=== PATIENT | female | born 1955 | race Caucasian/White ===

== ENCOUNTER 2023-06-12 16:00 | Outpatient (CLI) | payer MEDICARE, BC | END 2023-06-12 16:01 | disposition home or self-care (01) | LOC: SLEEPLAB 16:00 | DX: G47.33 Obstructive sleep apnea (adult) (pediatric) (principal); G31.84 Mild cognitive impairment of uncertain or unknown etiology; G47.9 Sleep disorder, unspecified; F32.A Depression, unspecified; R06.83 Snoring; R53.83 Other fatigue | CPT/HCPCS: 95810 ==